=== PATIENT | male | born 1985 | race Two or more races ===

== ENCOUNTER 2025-06-07 03:14 | Inpatient (IN) | payer MEDICAID, SELFPAY ==
[2025-06-07] VITALS (11 sets, daily range): BP systolic 95–125; BP diastolic 64–86; PULSE 65–100; RESP 16–96; TEMP 36.2–36.9; O2SAT 97–99; BMI 23.0; BMI 21.7
--- NOTE | 2025-06-07 03:31 | XR_ITS ---
Examination: CT abdomen and pelvis without contrast. Coronal 3-D reconstructions. Sagittal 2-D reconstructions. Date and time of exam:June 07, 2025, 0401 hours INDICATIONS: Nausea vomiting blood today CTDI: vol (mGy): 10.11 DLP: (mGycm): 586 Technique: Axial images of the abdomen have been obtained, 3 mm slice thickness Intravenous contrast material has not been administered. Low dose protocols were performed. One or more of the following dose reduction techniques were used; automated exposure control, adjustment of the mA and/or KV according to patient size, use of iterative reconstruction technique. Findings: Diffuse fatty infiltration throughout the liver, no liver or splenic lesions No gallstones No pancreatic or adrenal mass No renal or ureteral calculi, no hydronephrosis Aorta normal size Normal appendix No bowel obstruction Contracted urinary bladder with wall thickening at the 5 mm No prostatomegaly Osseous structures are intact IMPRESSION: Diffuse fatty infiltration throughout the liver Normal appendix No bowel obstruction Urinary bladder mild wall thickening, consider cystitis
--- NOTE | 2025-06-07 03:32 | EKG_ITS ---
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
--- NOTE | 2025-06-07 03:32 | PD.EDRME ---
Rapid Medical Screening Exam RME Arrival date/time: 06/07/25 03:14 This is a case of 39-year-old male with no medical history came into the emergency room due to abdominal pain epigastric area with vomiting actively with coffee-ground worsening of the symptoms this patient decided to sought consult here in the emergency room Chief Complaint: GI Bleed Time Seen by Provider: 06/07/25 04:12 Vital signs: Vital Signs Temperature 97.6 F 06/07/25 03:28 Respiratory Rate 17 06/07/25 03:28 Blood Pressure 95/64 06/07/25 03:28 Pulse Oximetry (%) 99 06/07/25 03:28 Oxygen Delivery Method Room Air 06/07/25 03:28
[2025-06-07 03:44] LABS: Basophils # (Auto) 0.1 Thou/mm3 (0.0-0.2); Basophils % (Auto) 1 % (0-2.5); Eosinophils # (Auto) 0.1 Thou/mm3 (0.0-0.5); Eosinophils % (Auto) 1 % (0-10); Hematocrit 42.5 % (41.0-53.0); Hemoglobin 14.7 g/dL (13.5-16.0); Immature Granulocytes Auto 0.03 Thou/mm3 (0.00-0.00); Lymphocytes # (Auto) 1.6 Thou/mm3 (1.0-4.8); Lymphocytes % (Auto) 13 % (10-50); Mean Corpuscular HGB Conc 34.6 g/dl (31.0-37.0); Mean Corpuscular Hemoglobin 32.3 pg (25.0-35.0); Mean Corpuscular Volume 93 fL (80-100); Monocytes # (Auto) 0.9 Thou/mm3 (0.0-0.8); Monocytes % (Auto) 7 % (0-12); Neutrophils # (Auto) 9.4 Thou/mm3 (1.8-7.7); Neutrophils % (Auto) 79 % (37-80); Nucleated Red Blood Cell # 0.00 Thou/mm3 (0.00-0.00); Nucleated Red Blood Cell % 0 /100 WBC (0); Platelet Count 225 Thou/mm3 (140-440); RDW Standard Deviation 40.5 fL (35.1-43.9); Red Blood Count 4.55 Miln/mm3 (4.50-5.90); White Blood Count 12.0 Thou/mm3 (3.8-10.6)
[2025-06-07 04:04] LABS: Alanine Aminotransferase 50 U/L (10-49); Albumin, Serum 4.9 gm/dL (3.5-5.0); Albumin/Globulin Ratio 1.5 (1.2-2.2); Alkaline Phosphatase 64 U/L (46-116); Anion Gap 19 (7-16); Aspartate Amino Transferase 47 U/L (0-34); BUN/Creatinine Ratio 18 Ratio (12-20); Bilirubin,Total 1.4 mg/dL (0.3-1.2); Blood Urea Nitrogen 14 mg/dL (9-23); Calcium 10.2 mg/dL (8.3-10.6); Calcium (Corrected) 10.2 mg/dL (8.5-10.1); Carbon Dioxide 24.2 mMol/L (20.0-31.0); Chloride 93 mMol/L (98-107); Creatinine (Component) 0.8 mg/dL (0.6-1.3); Estimated Creatinine Clearance 135.2 mL/min (>60); Globulin 3.3 gm/dL (2.3-3.5); Glucose 114 mg/dL (74-106); Lipase 26 U/L (12-53); Osmolality,Calculated 273 (275-295); Potassium 3.4 mMol/L (3.4-5.1); Sodium 136 mMol/L (136-145); Total Protein 8.2 gm/dL (5.7-8.2); eGFR > 60 See Note
--- NOTE | 2025-06-07 04:13 | PD.EDGIBLD ---
ED GI Bleed RME/HPI General Chief complaint: GI Bleed Stated complaint: VOMITTING BLOOD Time Seen by Provider: 06/07/25 04:12 Arrival date/time: 06/07/25 03:14 RME / HPI RME / HPI Narrative: 06/07/25 03:14 This is a case of 39-year-old male with no medical history came into the emergency room due to abdominal pain epigastric area with vomiting actively with coffee-ground worsening of the symptoms this patient decided to sought consult here in the emergency room See MDM. Stefano Reyes MD Related Data Home Medications ?Medication ?Instructions ?Recorded ?Confirmed No Known Home Medications 06/07/25 06/07/25 Allergies Allergy/AdvReac Type Severity Reaction Status Date / Time No Known Allergies Allergy Verified 06/07/25 03:19 Review of Systems Review of Systems Systems Reviewed: All systems reviewed, normal except as documented Past Medical History Social History SMOKING STATUS: Current every day smoker ALCOHOL: Current ALCOHOL FREQUENCY: 3 or More Drinks per Day ED Exam Narrative Physical exam: See MDM. Course Quality Measures none Orders Category Date Time Status Admit to Inpatient Status Routine Admission 06/07/25 09:29 Active Patient Condition Routine Admission 06/07/25 09:28 Ordered Activity as Tolerated Routine Care 06/07/25 09:29 Ordered COVID-19 Screening Questionnaire NOW Care 06/07/25 05:40 Completed Decision to Admit X1 Care 06/07/25 05:40 Completed EKG (ED ONLY) *Do not use* NOW Care 06/07/25 03:32 Completed Notify provider NEEDED Care 06/07/25 09:28 Active Obtain weight NOW Care 06/07/25 09:28 Completed Saline [Insert IV] NOW Care 06/07/25 04:14 Active Consult to Gastroenterology Stat Cons 06/07/25 05:[address] abdomen pelvis wo con Stat Exams 06/07/25 03:31 Completed EKG (ED Only) Stat Exams 06/07/25 03:32 Draft US abdomen limited Stat Exams 06/07/25 04:18 Completed Alcohol, Blood Medical Stat Lab 06/07/25 03:37 Completed Amylase Stat Lab 06/07/25 03:37 Completed Bilirubin,Direct Stat Lab 06/07/25 03:37 Completed CBC AM DRAW Lab 06/08/25 05:00 Ordered CBC AM DRAW Lab 06/09/25 05:00 Ordered CBC AM DRAW Lab 06/10/25 05:00 Ordered CBC Stat Lab 06/07/25 03:37 Completed Comprehensive Metabolic Panel AM DRAW Lab 06/08/25 05:00 Ordered Comprehensive Metabolic Panel AM DRAW Lab 06/09/25 05:00 Ordered Comprehensive Metabolic Panel AM DRAW Lab 06/10/25 05:00 Ordered Comprehensive Metabolic Panel Stat Lab 06/07/25 03:37 Completed Drug Screen,Urine Stat Lab 06/07/25 02:51 Completed Lipase Stat Lab 06/07/25 03:37 Completed Lipid Panel AM DRAW Lab 06/08/25 05:00 Ordered Magnesium AM DRAW Lab 06/08/25 05:00 Ordered Magnesium AM DRAW Lab 06/09/25 05:00 Ordered Magnesium AM DRAW Lab 06/10/25 05:00 Ordered Magnesium Stat Lab 06/07/25 03:37 Completed Occult Blood, Gastric (LAB) Stat Lab 06/07/25 05:09 Ordered PT [Prothrombin Time with INR] Stat Lab 06/07/25 04:20 Completed PTT [Partial Thromboplastin Time] Stat Lab 06/07/25 04:20 Completed Phosphorous AM DRAW Lab 06/08/25 05:00 Ordered Thyroid Stimulating Hormone AM DRAW Lab 06/08/25 05:00 Ordered Troponin I Stat Lab 06/07/25 03:37 Completed Type and Screen Stat Lab 06/07/25 03:37 Completed Acetaminophen Tab [Tylenol Tab] Med 06/07/25 09:28 Active 650 mg PO Q6H PRN Famotidine Inj [Pepcid Inj] Med 06/07/25 04:14 Discontinued 20 mg IVP X1 ONE Morphine Inj Med 06/07/25 04:14 Discontinued 2 mg IVP X1 ONE Octreotide Acet Inj [SandoSTATIN Inj] Med 06/07/25 05:32 Discontinued 50 mcg IV X1 ONE Ondansetron Inj [Zofran Inj] Med 06/07/25 09:28 Active 4 mg IVP Q6H PRN Ondansetron Inj [Zofran Inj] Med 06/07/25 04:14 Discontinued 4 mg IVP X1 ONE Ondansetron Inj [Zofran Inj] Med 06/07/25 05:55 Discontinued 8 mg IVP X1 ONE Pantoprazole Inj [Protonix Inj] Med 06/07/25 04:14 Discontinued 80 mg IVP X1 ONE Senna [Senokot] Med 06/07/25 09:28 Active 1 tab PO QDAY PRN Sodium Chloride 0.9% 1000 ml [Ns] 1,000 ml Med 06/07/25 09:30 Active IV 75 mls/hr Sodium Chloride 0.9% 1000 ml [Ns] 1,000 ml Med 06/07/25 04:14 Discontinued IV 999 mls/hr Sodium Chloride 0.9% [Ns] 100 ml Med 06/07/25 05:32 Active Octreotide Acet Inj [SandoSTATIN Inj] 1,000 mcg IV 50 mcg/hr Code Status Routine Oth 06/07/25 09:28 Ordered Oxygen Delivery PRN RT 06/07/25 09:30 Active Vital Signs Vital signs: Vital Signs Temperature 97.6 F 06/07/25 03:28 Respiratory Rate 17 06/07/25 03:28 Blood Pressure 95/64 06/07/25 03:28 Pulse Oximetry (%) 99 06/07/25 03:28 Oxygen Delivery Method Room Air 06/07/25 03:28 GI Bleed MDM Narrative MDM Narrative:: Scribe Attestation: I, Alayna Cervantes, am scribing for and in the presence of Dr. Reyes. Provider Notation: Although this document has been carefully reviewed, there may still be some phonetic and other typographical errors.? These errors are purely grammatical due to imperfections in the software program and should not be construed in any way to? compromise the substance of the patient's medical care during this visi This section includes all my notes and documentations, including HPI, PE, and ED course. Stefano Reyes MD HPI: 39 y/o male here with possible hematemesis for 12 to 24 hours. No bright red blood in emesis. Reports coffee ground emesis. No severe abdominal pain. No rectal bleeding or tarry stools. No history of similar episodes. Reports regular alcohol use. No other complaints. ROS: All negative except as documented in HPI. Physical Exam: General: Alert and oriented. Violently throwing up coffee ground emesis. Eyes: Conjunctivae and lids clear. ENT: No nasal congestion. Neck: Supple. Heart: RRR. Lungs: No respiratory distress. Good air movement. No rhonchi, wheezing, rales. Abdomen: Soft with equivocal tenderness, to point to localize. Normal bowel sounds. No distension. No rebound or guarding. Back: No CVA tenderness. Skin: Warm and dry. Neuro: Alert and oriented X 3. I reviewed all diagnostic test results: My interpretation of the EKG is: Sinus rhythm (94 bpm) with nonspecific ST-T changes. My review of the Abdominal US report is: NAD. My review of the Abdomen/Pelvis CT report is: NAD. Blood tests unremarkable. Urine specimen pending. At this point, diagnoses include: Upper GI bleed. Treatment here included: IV fluid, Zofran, Famotidine, Protonix, and Octreotide. Patient felt much better. 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 About the presentation and exam and diagnostics and treatments here.? And need of further care in the hospital.? Will accept the patient. Stefano Reyes MD Patient data External records reviewed:: [facility] previous records (Reviewed prior ED records from 03/30/22. Patient was seen for Laceration.) Clinical information provided by:: patient Social determinants that could affect healthcare access:: alcohol use Patient has the following chronic illnesses:: Alcoholism How is presenting disease/condition affected by chronic disease/condition?: exacerbated by Evaluation data The following diagnostics were reviewed and interpreted by me:: EKG tracing(s) (My interpretation of the EKG is: Sinus rhythm (94 bpm) with nonspecific ST-T changes. Stefano Reyes MD) Lab and/or radiology exams considered but not ordered:: None Interpretation Summary: I reviewed all diagnostic test results: My interpretation of the EKG is: Sinus rhythm (94 bpm) with nonspecific ST-T changes. My review of the Abdominal US report is: NAD. My review of the Abdomen/Pelvis CT report is: NAD. Blood tests unremarkable. Urine specimen pending. Medications / Prescriptions Medications or Prescriptions considered but not ordered:: None Medication administrations:: Medication Administration History Acetaminophen (Acetaminophen 325 Mg Tablet) 650 mg PO Q6H PRN PRN Reason: Fever >101.5 &/or pain Stop: 07/07/25 09:27 Octreotide Acetate 1,000 mcg/ (Sodium Chloride) 102 mls @ 5.1 mls/hr IV .Q20H ONE; Protocol Stop: 06/08/25 01:31 Last Admin: 06/07/25 05:42 Dose: 50 mcg/hr, 5.1 mls/hr Documented By: DIANNE Sodium Chloride (Ns) 1,000 mls @ 75 mls/hr IV .[id number] [facility] Stop: 07/07/25 09:29 Last Admin: 06/07/25 09:52 Dose: 75 mls/hr Documented By: Magnesium Sulfate (Magnesium Sulfate Ivpb) 4 gm in 50 mls @ 12.5 mls/hr IV X1 ONE Stop: 06/07/25 21:49 Last Admin: 06/07/25 18:22 Dose: 12.5 mls/hr Documented By: YESI Ondansetron HCl (Ondansetron Inj 2 Mg/Ml Inj 2 Ml) 4 mg IVP Q6H PRN; Protocol PRN Reason: NAUSEA OR VOMITING Stop: 07/07/25 09:27 Pantoprazole Sodium (Pantoprazole Inj 40 Mg Vial) 40 mg IVP BID [facility] Stop: 07/09/25 08:59 Sennosides (Senna Tablet) 1 tab PO QDAY PRN; Protocol PRN Reason: constipation Stop: 07/07/25 09:27 Discontinued Medications Famotidine (Famotidine Inj 10 Mg/Ml Vial 2 Ml) 20 mg IVP X1 ONE Stop: 06/07/25 04:15 Last Admin: 06/07/25 04:44 Dose: 20 mg Documented By: DIANNE Sodium Chloride (Ns) 1,000 mls @ 999 mls/hr IV .Q1H1M ONE Stop: 06/07/25 05:14 Last Infusion: 06/07/25 06:28 Dose: Infused Documented By: Admin: 06/07/25 04:44 Dose: 999 mls/hr Documented By: DIANNE Morphine Sulfate (Morphine Sulf Inj 10 Mg/Ml Vial) 2 mg IVP X1 ONE Stop: 06/07/25 04:15 Last Admin: 06/07/25 04:45 Dose: Not Given Documented By: DIANNE Non-Admin Reason: Patient Refused Octreotide Acetate (Octreotide Acet Inj 50 Mcg/Ml Vial) 50 mcg IV X1 ONE Stop: 06/07/25 05:33 Last Admin: 06/07/25 05:42 Dose: 50 mcg Documented By: DIANNE Ondansetron HCl (Ondansetron Inj 2 Mg/Ml Inj 2 Ml) 4 mg IVP X1 ONE; Protocol Stop: 06/07/25 04:15 Last Admin: 06/07/25 04:44 Dose: 4 mg Documented By: DIANNE Ondansetron HCl (Ondansetron Inj 2 Mg/Ml Inj 2 Ml) 8 mg IVP X1 ONE; Protocol Stop: 06/07/25 05:56 Last Admin: 06/07/25 06:01 Dose: 8 mg Documented By: DIANNE Pantoprazole Sodium (Pantoprazole Inj 40 Mg Vial) 80 mg IVP X1 ONE Stop: 06/07/25 04:15 Last Admin: 06/07/25 04:43 Dose: 80 mg Documented By: DIANNE IVF, Pepcid 20 mg, Morphine 2 mg, Zofran 4 mg, Protonix 80 mg, and Octreotide. Consultations Consultation(s) initiated? (list below): Yes Consultation #1 (Physician, Specialty, Details): I discussed the case with our tape sewing machine operator and our hospitalist.? About the presentation and exam and diagnostics and treatments here.? And need of further care in the hospital.? Will accept the patient. Diagnosis GI bleed differential diagnosis: esophageal varices, gastritis, Upper gastrointestinal hemorrhage and other (Peptic Ulcer) Most likely diagnosis given after review of the tests above:: Upper GI bleed Admission Indicated Admission indicated?: indicated Explain why admission is indicated or not indicated:: Upper GI bleed Admission Request Was there a request for admission?: Yes Admission Attestation Admission request attestation: Discussed case with [] from Hospitalist service regarding admission. Discussed patients ED course, exam findings, labs, and radiology results. The Hospitalist [agrees,declines] to accept the patient for admission. Disposition Plan Disposition Plan: Admit Discharge Plan Plan Patient Disposition: Admit Acute Care w/in Hospital Problem List Clinical Impression: Upper GI bleed
--- NOTE | 2025-06-07 04:18 | XR_ITS ---
Examination: Abdomen sonogram, Limited Date and time of exam: June 07, 2025 0522 hours INDICATIONS: Nausea vomiting right upper abdominal pain beginning today. Technique: Real-time bolton scale transabdominal sonographic images of the upper abdomen obtained. Findings: Normal gallbladder. Normal common bile duct 0.35 cm. Pancreas obscured by bowel gas. Liver 16.35 cm no liver lesions. Normal hepatopedal portal venous flow. Patent IVC. IMPRESSION: Normal gallbladder.
[2025-06-07] MEDS: FAMOTIDINE INJ 10 MG/ML VIAL 2 ML 20 MG IVP (04:44)
[2025-06-07] MEDS: SODIUM CHLORIDE 0.9% 1000 ML 1,000 ML 999 ML IV (04:44)
[2025-06-07] MEDS: ONDANSETRON INJ 2 MG/ML INJ 2 ML 4 MG IVP (04:44)
--- NOTE | 2025-06-07 05:02 | PRELIM_ITS ---
CT scan of the abdomen and pelvis without intravenous contrast (axial sections with sagittal and coronal reformats) June 07, 2025 0401 hours Clinical History: Abd pain. Comparison: No prior study is available for comparison. Findings: The lung bases are clear. The liver, gallbladder, pancreas, spleen, kidneys and adrenals are unremarkable on this noncontrast study. No evidence of bowel obstruction. A moderate amount of fecal material is present in the colon. The appendix is within normal limits (coronal images 72-77/139). There is no mesenteric or retroperitoneal adenopathy. The urinary bladder is incompletely distended at the time of the examination and appears mildly thick walled. . There is no free fluid or free air. Degenerative changes are identified in the spine. Impression: No evidence of bowel obstruction, free air or abscess. Report Electronically Signed By: Salazar Mccormick 06/07/2025 5:01:34 AM [EST]
[2025-06-07] MEDS: OCTREOTIDE ACET INJ 50 mCg/ML VIAL IV (05:42)
[2025-06-07] MEDS: OCTREOTIDE ACET INJ 1,000 MCG in SODIUM CHLORIDE 0.9% 100 ML 5.1 MCG IV ×2 (05:42→22:16)
[2025-06-07 05:52] LABS: INR 1.0 (0.9-1.3); Partial Thromboplastin Time 25.9 Seconds (22.0-36.0); Prothrombin Time 11.2 Seconds (9.0-12.2)
[2025-06-07 05:52] LABS: Alcohol, Blood Medical 79.6 mg/dL (0-10.0); Amylase 30 U/L (30-118); Bilirubin,Direct 0.5 mg/dL (0.0-0.3); Magnesium 1.5 mg/dL (1.6-2.6); Troponin I < 0.002 ng/mL (0.0-0.045)
--- NOTE | 2025-06-07 05:55 | PC.NURSE ---
Pt vomiting, notified provider, new order to give 8mg of zofran IVP once-see mar
[2025-06-07] MEDS: ONDANSETRON INJ 2 MG/ML INJ 2 ML 8 MG IVP (06:01)
--- NOTE | 2025-06-07 06:24 | PRELIM_ITS ---
Right upper quadrant abdominal ultrasound. June 07, 2025 at 0522 hours Clinical history: Vomiting LFT elevation. Technique: Grayscale and color flow images of the right upper quadrant are provided. Hepatic and portal veins were also imaged with color flow images. Correlation: Correlated with the prior CT study perfomed earlier today. Findings: The liver is normal in echogenicity. No intrahepatic biliary ductal dilatation. No gallbladder calculus, wall thickening or pericholecystic fluid is demonstrated. The common bile duct is normal in caliber at 3.5 mm. The pancreas is limited for evaluation due to bowel gas Impression: No sonographic features of acute cholecystitis. Other findings as described above. Report Electronically Signed By: Devora Lugo 06/07/2025 6:23:10 AM [EST]
--- NOTE | 2025-06-07 08:22 | PC.NURSE ---
RESIDENT AT BEDSIDE TO SEE PT
[2025-06-07] MEDS: SODIUM CHLORIDE 0.9% 1000 ML 1,000 ML 75 ML IV ×2 (09:52→21:59)
--- NOTE | 2025-06-07 13:52 | PC.NURSE ---
REPORT CALLED TO NIRALI ON TELE FLOOR. PT TO GO TO ROOM 380
--- NOTE | 2025-06-07 14:22 | PD.ADDPROG ---
Addendum Progress Note Addendum Date of report being addended: 06/07/25 Narrative: I Kg Vasquez MD reviewed the note and agree with the resident's assessment & plan with modifications/additions/exceptions as below. I have personally reviewed labs, imaging, home meds/prior records, examined the patient, formulated and discussed management plan with the IM team. A 39-year-old male with heavy EtOH and polysubstance use presented to ED following an episode of hematemesis. Patient is hemodynamically stable with hemoglobin within normal limits, LFTs mildly elevated and labs significant for dehydration. Lipase, troponin within normal limits. CT scan did show fatty liver. Continue trending CBC every 12 hours, will administer IV fluids to keep hydrated, keep n.p.o., start Protonix 40 mg IV twice daily following Protonix loading and continue octreotide infusion. Consult GI for endoscopic evaluation and management.
--- NOTE | 2025-06-07 14:41 | PC.NURSE ---
Pt to room via gurney. Comfortable at this time. Denies N/V or pain. Girlfriend at bedside.
--- NOTE | 2025-06-07 15:11 | PC.NURSE ---
[facility] [place] Martha Grier is at bedside and can be reached at [phone]
[2025-06-07 15:28] LABS: Amphetamine/Methamp Scrn,U Negative (Negative); Barbiturate Screen,Urine Negative (Negative); Benzodiazepines Screen,Urine Negative (Negative); Benzoylecgonine Screen, Ur Positive (Negative); Fentanyl Screen,Urine Negative (Negative); Opiate Screen,Urine Negative (Negative); THC Screen,Urine Negative (Negative)
--- NOTE | 2025-06-07 16:17 | ESHP_ITS ---
<Statement entered by Kg Vasquez MD - 06/08/25 12:44> I Kg Vasquez MD reviewed the note and agree with the resident's assessment & plan with modifications/additions/exceptions as below. I have personally reviewed labs, imaging, home meds/prior records, examined the patient, formulated and discussed management plan with the IM team. A 39-year-old male with heavy EtOH and polysubstance use presented to ED following an episode of hematemesis. Patient is hemodynamically stable with hemoglobin within normal limits, LFTs mildly elevated and labs significant for dehydration. Lipase, troponin within normal limits. CT scan did show fatty liver. Continue trending CBC every 12 hours, will administer IV fluids to keep hydrated, keep n.p.o., start Protonix 40 mg IV twice daily following Protonix loading and continue octreotide infusion. Consult GI for endoscopic evaluation and management. <Statement entered by Prisca Vasquez MD - 06/07/25 19:39> Patient is seen at bedside. Patient endorses to drinking 4 to 5 tall cans of beer daily and uses cocaine occasionally. Patient states last night he drank couple beers and started not feeling very well and was nauseous and had 1 episodes of coffee ground emesis. Patient denies any previous history of similar episodes and has never been told anything related to his liver disease. GI is on board patient will continue octreotide drip and Protonix twice daily and will undergo EGD tomorrow. Will continue IV fluids for now. Patient was seen and examined by me personally. I have directly supervised and reviewed documentation by the team resident and agree with its findings. ------- Plan of care was discussed with the attending, Dr. Pedro Vasquez, PGY-2 Documentation for date of: 06/07/25 HPI History of Present Illness Chief complaint: Hematemasis History of present illness: Gadiel Polanco is a 39M pmhx significant for polysubstance use including alcohol and cocain who presents to [facility] on 06/07 with coffee-ground emesis starting yesterday afternoon. Patient states that he had a couple of beers before and that around 5 PM he started vomiting brown gritty vomit about 1-2 cups every other hour, with associated nausea, subjective fevers and sweating. He has never vomited like this before. This morning patient continued to feel nauseous and vomiting prompting current ED visit. Patient reports that he drinks about 4-5 tall cans of beer a day for the last few years. Endorses some epigastric pain, nausea and vomiting. Patient currently denies any chest pain, lower abdominal pain, shortness of breath, urinary symptoms or fever/chills. States that he infrequently sees a PCP and has never been diagnosed with any liver disease. PMHx: alcohol use Surgical Hx: remote R hand surgery FHx: Noncontributory Social Hx: Smokes 1 to 2 cigarettes every other day. Endorses snorting cocaine about once a month. Admits to drinking 4-5 tall beer cans a day. Allergies: NKDA, NKA Medications: none In ED, BP 95/64, HR 100, RR 17, afebrile, satting 99% RA. Significant labs: WBC 12, anion gap 19, Mg 1.5, Tbili 1.4, AST/ALT 47/50, trops neg. UDS positive for cocaine and urine alcohol 79.6. In ED, given IV pantoprazole 80 mg x1, 1L NS, zofran and famotidine, octreotide 50 mcg x1, octreotide drip. CTAP showed diffuse fatty infiltration throughout the liver, normal appendix, urinary bladder mild wall thickening. EKG showed sinus tachycardia rate of 94. Abdominal ultrasound shows normal gallbladder. Patient was admitted for further workup and management of GIB. Review of Systems Review of Systems Systems Reviewed: All systems reviewed, normal except as documented Exam Vital Signs Temp Pulse Resp BP Pulse Ox O2 Del Method 98.0 F 96 18 111/67 97 Room Air 06/07/25 12:28 06/07/25 12:06/07/25 12:06/07/25 12:06/07/25 12:06/07/25 12: Narrative Exam GENERAL: AOx3, no acute distress, lying comfortably in bed, well developed and nurished HEENT: NC/AT, mucous membranes dry, bilateral sclera anicteric CARDIOVASCULAR: regular rate and rhythm, S1/S2 present, no murmurs appreciated PULMONARY: clear to auscultation bilaterally, no rales/rhonchi/wheezes ABDOMINAL: soft, non-distended, no rebound/guarding, bowel sounds present, +mild epigastric tenderness EXTREMITIES: no peripheral edema SKIN: warm and dry, intact, no rashes NEURO: CN II-XII grossly intact, no focal deficits, alert, following commands Results: Labs 06/07/25 03:37 06/07/25 03:37 Labs: Short CBC 06/07/25 Range/Units 03:37 WBC 12.0 H (3.8-10.6) Thou/mm3 Hgb 14.7 (13.5-16.0) g/dL Hct 42.5 (41.0-53.0) % Plt Count 225 (140-440) Thou/mm3 BMP 06/07/25 03:37 Sodium 136 Potassium 3.4 Chloride 93 L Carbon Dioxide 24.2 BUN 14 Creatinine 0.8 Glucose 114 H Calcium 10.2 Cardiac Enzymes 06/07/25 Range/Units 03:37 Troponin I < 0.002 (0.0-0.045) ng/mL Liver Function 06/07/25 Range/Units 03:37 Total Bilirubin 1.4 H (0.3-1.2) mg/dL Direct Bilirubin 0.5 H (0.0-0.3) mg/dL AST 47 H (0-34) U/L ALT 50 H (10-49) U/L Alkaline Phosphatase 64 (46-116) U/L Albumin 4.9 (3.5-5.0) gm/dL Quality Measures Quality Measures VTE prophylaxis Medications Home Medications and Allergies Home Medications ?Medication ?Instructions ?Recorded ?Confirmed ?Type No Known Home Medications 06/07/2505/22 History Allergies Allergy/AdvReac Type Severity Reaction Status Date / Time No Known Allergies Allergy Verified 06/07/25 03:19 Visit Medications Acetaminophen (Acetaminophen 325 Mg Tablet) 650 mg PO Q6H PRN PRN Reason: Fever >101.5 &/or pain Stop: 07/07/25 09:27 Octreotide Acetate 1,000 mcg/ (Sodium Chloride) 102 mls @ 5.1 mls/hr IV .Q20H ONE; Protocol Stop: 06/08/25 01:31 Last Admin: 06/07/25 05:42 Dose: 50 mcg/hr, 5.1 mls/hr Sodium Chloride (Ns) 1,000 mls @ 75 mls/hr IV .[id number] VANESSA Stop: 07/07/25 09:29 Last Admin: 06/07/25 09:52 Dose: 75 mls/hr Ondansetron HCl (Ondansetron Inj 2 Mg/Ml Inj 2 Ml) 4 mg IVP Q6H PRN; Protocol PRN Reason: NAUSEA OR VOMITING Stop: 07/07/25 09:27 Pantoprazole Sodium (Pantoprazole Inj 40 Mg Vial) 40 mg IVP BID VANESSA Stop: 07/09/25 08:59 Sennosides (Senna Tablet) 1 tab PO QDAY PRN; Protocol PRN Reason: constipation Stop: 07/07/25 09:27 Discontinued Medications Famotidine (Famotidine Inj 10 Mg/Ml Vial 2 Ml) 20 mg IVP X1 ONE Stop: 06/07/25 04:15 Last Admin: 06/07/25 04:44 Dose: 20 mg Sodium Chloride (Ns) 1,000 mls @ 999 mls/hr IV .Q1H1M ONE Stop: 06/07/25 05:14 Last Infusion: 06/07/25 06:28 Dose: Infused Morphine Sulfate (Morphine Sulf Inj 10 Mg/Ml Vial) 2 mg IVP X1 ONE Stop: 06/07/25 04:15 Last Admin: 06/07/25 04:45 Dose: Not Given Octreotide Acetate (Octreotide Acet Inj 50 Mcg/Ml Vial) 50 mcg IV X1 ONE Stop: 06/07/25 05:33 Last Admin: 06/07/25 05:42 Dose: 50 mcg Ondansetron HCl (Ondansetron Inj 2 Mg/Ml Inj 2 Ml) 4 mg IVP X1 ONE; Protocol Stop: 06/07/25 04:15 Last Admin: 06/07/25 04:44 Dose: 4 mg Ondansetron HCl (Ondansetron Inj 2 Mg/Ml Inj 2 Ml) 8 mg IVP X1 ONE; Protocol Stop: 06/07/25 05:56 Last Admin: 06/07/25 06:01 Dose: 8 mg Pantoprazole Sodium (Pantoprazole Inj 40 Mg Vial) 80 mg IVP X1 ONE Stop: 06/07/25 04:15 Last Admin: 06/07/25 04:43 Dose: 80 mg Assessment & Plan Plan Gadiel Polanco is a 39M pmhx significant for alcohol dependence who presents to [facility] on 06/07 with acute hematemesis admitted for management of GIB, likely upper. #GIB, likely upper #Hematemasis Endorses frequent episodes of hematemesis starting day prior to admission and in moderate amounts. On admission still vomiting, however, much less and light brown colored. Likely upper GI bleed 2/2 chronic alcohol use and cocaine use. Concern for esophageal varices given chronic alcohol use. Hgb stable at 14.7. 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 Reports no history of liver disease and rarely sees a PCP. CTAP showed diffuse fatty infiltration throughout the liver, normal appendix, urinary bladder mild wall thickening. AST/ALT mildly elevated at 47/50, baseline unknown. TBili elevated at 1.4 however abdominal US neg for gallbladder disease. Plan: - CTM LFTs and Tbili - Recommend outpatient workup for further management #Hypomagnesemia Admission Mg 1.5, repleted Mg 4g IV Plan: - Recheck and replete as necessary Hospital management: Lines: peripheral IV Diet: NPO Bowel: Senna/docusate GI prophylaxis: IV pantoprazole 40 mg BID DVT prophylaxis: SCDs, heparin held iso GIB Disposition: med [facility] for management of GIB CODE STATUS: Full code Plan of care discussed with attending Dr. Vasquez, and PGY-2 Dr. Vasquez. Trudi Rojas, DO PGY-1 Internal Medicine
[2025-06-07] MEDS: Magnesium Sulfate 4 GM Ivpb 4 GM/50 ML BAG IV (18:22)
[2025-06-07 18:55] LABS: Basophils # (Auto) 0.0 Thou/mm3 (0.0-0.2); Basophils % (Auto) 1 % (0-2.5); Eosinophils # (Auto) 0.1 Thou/mm3 (0.0-0.5); Eosinophils % (Auto) 1 % (0-10); Hematocrit 32.4 % (41.0-53.0); Hemoglobin 10.9 g/dL (13.5-16.0); Immature Granulocytes Auto 0.01 Thou/mm3 (0.00-0.00); Lymphocytes # (Auto) 1.5 Thou/mm3 (1.0-4.8); Lymphocytes % (Auto) 25 % (10-50); Mean Corpuscular HGB Conc 33.6 g/dl (31.0-37.0); Mean Corpuscular Hemoglobin 32.2 pg (25.0-35.0); Mean Corpuscular Volume 96 fL (80-100); Monocytes # (Auto) 0.9 Thou/mm3 (0.0-0.8); Monocytes % (Auto) 14 % (0-12); Neutrophils # (Auto) 3.6 Thou/mm3 (1.8-7.7); Neutrophils % (Auto) 59 % (37-80); Nucleated Red Blood Cell # 0.00 Thou/mm3 (0.00-0.00); Nucleated Red Blood Cell % 0 /100 WBC (0); Platelet Count 164 Thou/mm3 (140-440); RDW Standard Deviation 41.5 fL (35.1-43.9); Red Blood Count 3.39 Miln/mm3 (4.50-5.90); White Blood Count 6.1 Thou/mm3 (3.8-10.6)
--- NOTE | 2025-06-07 20:53 | PD.IMCONS ---
HPI Data of Consult Requesting Physician: Trudi Rojas, RESIDENT Primary Care Provider: Physician No Primary/Family Consult Narrative Reason for consult: Nausea vomiting coffee-ground emesis History of present illness: 39 years old male came into the emergency room with severe abdominal pain midepigastric right upper quadrant going to the back as well as nausea vomiting with coffee-ground emesis he was subsequently readmitted He has a significant drop in hemoglobin hematocrit Presenting hemoglobin hematocrit 14.7 and 42.5 which went down to 10.9 and 32.4 with a platelet count of 164,000 Pro time INR was 1.0 Total bilirubin 0.5 slightly elevated AST ALT at 47 and 50 and alk phos normal at 64 Gallbladder ultrasound shows no stones in the gallbladder enlarged liver at 16.5 cm with hepatomegaly which is confirmed with fatty infiltration on CT scan imaging of the abdomen without contrast there were no other abnormalities Patient was subsequently admitted cc:: cc: RESIDENT Boyd Review of Systems Review of Systems Systems Reviewed: All systems reviewed, normal except as documented Past Medical History Surgical History OTHER SURGICAL HX: As in the history of present illness Meds Home Medications and Allergies Home Medications ?Medication ?Instructions ?Recorded ?Confirmed ?Type No Known Home Medications 06/07/25 06/07/25 History Allergies Allergy/AdvReac Type Severity Reaction Status Date / Time No Known Allergies Allergy Verified 06/07/25 03:19 Exam Vital Signs Temp Pulse Resp BP Pulse Ox O2 Del Method 97.2 F 93 16 123/81 98 Room Air 06/07/25 16:00 06/07/25 20:50 06/07/25 16:00 06/07/25 16:00 06/07/25 16:00 06/07/25 16:00 Constitutional Comments: Alert oriented Routine Respiratory Exam Comments: Normal to auscultation Routine Abdominal Exam Comments: Soft positive bowel sound midepigastric tenderness Results Labs 06/09/25 04:37 06/09/25 04:37 Labs: Short CBC 06/07/25 06/07/25 Range/Units 03:37 18:30 WBC 12.0 H 6.1 D (3.8-10.6) Thou/mm3 Hgb 14.7 10.9 L D (13.5-16.0) g/dL Hct 42.5 32.4 L D (41.0-53.0) % Plt Count 225 164 D (140-440) Thou/mm3 BMP 06/07/25 03:37 Sodium 136 Potassium 3.4 Chloride 93 L Carbon Dioxide 24.2 BUN 14 Creatinine 0.8 Glucose 114 H Calcium 10.2 Cardiac Enzymes 06/07/25 Range/Units 03:37 Troponin I < 0.002 (0.0-0.045) ng/mL Liver Function 06/07/25 Range/Units 03:37 Total Bilirubin 1.4 H (0.3-1.2) mg/dL Direct Bilirubin 0.5 H (0.0-0.3) mg/dL AST 47 H (0-34) U/L ALT 50 H (10-49) U/L Alkaline Phosphatase 64 (46-116) U/L Albumin 4.9 (3.5-5.0) gm/dL Assessment and Plan Additional Assessment & Plan Additional Plan: # Coffee-ground emesis # Posthemorrhagic anemia Plan I agree with the current management Consent obtained for fiberoptic esophagogastroduodenoscopy with possible biopsy possible therapeutic intervention under intravenous moderate sedation schedule for a.m. N.p.o. midnight tonight except p.o. meds # fatty liver with hepatomegaly discussed CHAPIN cirrhosis Thank you very much for the opportunity to participate in the care of this patient
[2025-06-07 21:24] LABS: Hepatitis A Antibody IgM Non Reactive (Non React); Hepatitis B Core Antibody IgM Non Reactive (Non React); Hepatitis B Surface Antigen Non Reactive (Non React); Hepatitis C Antibody Non Reactive (Non React)
[2025-06-08] VITALS (21 sets, daily range): BP systolic 105–149; BP diastolic 66–95; PULSE 49–86; RESP 12–95; TEMP 36.1–36.4; O2SAT 94–99
[2025-06-08] MEDS: cefTRIAXone/D5w 1gm IV premix 1 GM/50 ML BAG IV (05:37)
[2025-06-08 06:14] LABS: Basophils # (Auto) 0.0 Thou/mm3 (0.0-0.2); Basophils % (Auto) 1 % (0-2.5); Eosinophils # (Auto) 0.1 Thou/mm3 (0.0-0.5); Eosinophils % (Auto) 3 % (0-10); Hematocrit 33.1 % (41.0-53.0); Hemoglobin 11.0 g/dL (13.5-16.0); Immature Granulocytes Auto 0.01 Thou/mm3 (0.00-0.00); Lymphocytes # (Auto) 1.1 Thou/mm3 (1.0-4.8); Lymphocytes % (Auto) 21 % (10-50); Mean Corpuscular HGB Conc 33.2 g/dl (31.0-37.0); Mean Corpuscular Hemoglobin 32.7 pg (25.0-35.0); Mean Corpuscular Volume 99 fL (80-100); Monocytes # (Auto) 0.7 Thou/mm3 (0.0-0.8); Monocytes % (Auto) 13 % (0-12); Neutrophils # (Auto) 3.3 Thou/mm3 (1.8-7.7); Neutrophils % (Auto) 63 % (37-80); Nucleated Red Blood Cell # 0.00 Thou/mm3 (0.00-0.00); Nucleated Red Blood Cell % 0 /100 WBC (0); Platelet Count 149 Thou/mm3 (140-440); RDW Standard Deviation 43.2 fL (35.1-43.9); Red Blood Count 3.36 Miln/mm3 (4.50-5.90); White Blood Count 5.2 Thou/mm3 (3.8-10.6)
[2025-06-08 07:11] LABS: Alanine Aminotransferase 53 U/L (10-49); Albumin, Serum 3.7 gm/dL (3.5-5.0); Albumin/Globulin Ratio 1.5 (1.2-2.2); Alkaline Phosphatase 46 U/L (46-116); Anion Gap 9 (7-16); Aspartate Amino Transferase 74 U/L (0-34); BUN/Creatinine Ratio 14 Ratio (12-20); Bilirubin,Total 1.5 mg/dL (0.3-1.2); Blood Urea Nitrogen 11 mg/dL (9-23); Calcium 8.9 mg/dL (8.3-10.6); Calcium (Corrected) 9.1 mg/dL (8.5-10.1); Carbon Dioxide 29.7 mMol/L (20.0-31.0); Cardiac Risk Estimate 2.0 RATIO (4.0-6.7); Chloride 102 mMol/L (98-107); Cholesterol 126 mg/dL (132-200); Creatinine (Component) 0.8 mg/dL (0.6-1.3); Estimated Creatinine Clearance 127.6 mL/min (>60); Globulin 2.4 gm/dL (2.3-3.5); Glucose 99 mg/dL (74-106); HDL Cholesterol 62 mg/dL (40-60); LDL Cholesterol,Calculated 49 mg/dL (0-130); Magnesium 1.9 mg/dL (1.6-2.6); Osmolality,Calculated 280 (275-295); Phosphorous 2.8 mg/dL (2.4-5.1); Potassium 4.0 mMol/L (3.4-5.1); Sodium 141 mMol/L (136-145); Thyroid Stimulating Hormone 0.30 uIU/mL (0.55-4.78); Total Protein 6.1 gm/dL (5.7-8.2); Triglycerides 75 mg/dL (30-150); eGFR > 60 See Note
[2025-06-08 07:21] LABS: Glucose Estimated Average 94 mg/dL (80-131); Hemoglobin A1C 4.9 % Hgb (4.8-6.0)
--- NOTE | 2025-06-08 09:11 | PC.SS ---
Follow up note: EGD today.
--- NOTE | 2025-06-08 09:12 | ESPR_ITS ---
<Statement entered by Rio Crockett MD - 06/09/25 10:22> Patient was seen and examined at bedside. I agree on the assessment and plan on this note as documented by Trudi Rojas DO resident PGY1. 39-year-old male with past medical history of alcohol use admitted to [facility] for GI bleed workup, suspecting upper GI bleed due to hematemesis, will continue Protonix 40 twice daily, octreotide drip and ceftriaxone for SBP prophylaxis. Patient scheduled for EGD today. 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 Will continue current management, pending EGD. Case discussed with attending Dr. Pedro Crockett MD PGY-2 Documentation for date of: 06/08/25 Subjective Subjective Interval history: No acute overnight events. Patient seen and examined at bedside. Patient denies any further episodes of brown-colored vomit,current nausea or any abdominal pain. Last bowel movement prior to admission. Denies shortness of breath, dizziness or fatigue. EGD scheduled for today. Patient has been n.p.o. since midnight. On ceftriaxone for SBP prophylaxis, octreotide drip, IV pantoprazole 40 mg twice daily. Vitals stable. Hemoglobin dropped from 14.7 on admission to 11, likely dehydration as white count also sharply decreased from 12-6.1. TSH low at 0.3 follow T4. LFTs slightly uptrending at AST/AST from 47/50-74/53. T. bili still elevated at 1.5. Exam Vital Signs Temp Pulse Resp BP Pulse Ox O2 Del Method 97.5 F 86 20 110/76 99 Room Air 06/08/25 04:00 06/08/25 06:55 06/08/25 06:55 06/08/25 04:00 06/08/25 04:00 06/08/25 04:00 Narrative Exam GENERAL: AOx3, no acute distress, lying comfortably in bed, well developed and nourished HEENT: NC/AT, mucous membranes dry, bilateral sclera anicteric CARDIOVASCULAR: regular rate and rhythm, S1/S2 present, no murmurs appreciated PULMONARY: clear to auscultation bilaterally, no rales/rhonchi/wheezes ABDOMINAL: soft, non-distended, no rebound/guarding, bowel sounds present, no epigastric tenderness EXTREMITIES: no peripheral edema SKIN: warm and dry, intact, no rashes NEURO: CN II-XII grossly intact, no focal deficits, alert, following commands Objective Labs 06/08/25 05:35 06/08/25 05:35 Labs: Laboratory Results - last 24 hr 06/07/25 06/07/25 06/07/25 02:51 03:37 18:30 WBC 6.1 D RBC 3.39 L Hgb 10.9 L D Hct 32.4 L D MCV 96 MCH 32.2 MCHC 33.6 RDW Std Deviation 41.5 Plt Count 164 D Neut % (Auto) 59 Lymph % (Auto) 25 [place] % (Auto) 14 H Eos % (Auto) 1 Baso % (Auto) 1 Neut # (Auto) 3.6 Lymph # (Auto) 1.5 [place] # (Auto) 0.9 H Eos # (Auto) 0.1 Baso # (Auto) 0.0 Immature Gran # (Auto) 0.01 H Absolute Nucleated RBC 0.00 Immature Gran % 0 Nucleated RBC % 0 Sodium Potassium Chloride Carbon Dioxide Anion Gap BUN Creatinine Estim Creat Clear Calc eGFR BUN/Creatinine Ratio Glucose Estimated Ave Glu mg/dL Hemoglobin A1c Calculated Osmolality Calcium Corrected Calcium Phosphorus Magnesium Total Bilirubin AST ALT Alkaline Phosphatase Total Protein Albumin Globulin Albumin/Globulin Ratio Triglycerides Cholesterol LDL Cholesterol, Calc HDL Cholesterol Cholesterol/HDL Ratio TSH Urine Opiates Screen Negative Urine Fentanyl Screen Negative Ur Barbiturates Screen Negative U Amphetamin/Meth Scrn Negative U Benzodiazepines Scrn Negative U Cocaine Metab Screen Positive A U Marijuana (THC) Screen Negative Hepatitis A IgM Ab Non Reactive Hep Bs Antigen Non Reactive Hep B Core IgM Ab Non Reactive Hepatitis C Antibody Non Reactive 06/08/25 05:35 WBC 5.2 RBC 3.36 L Hgb 11.0 L Hct 33.1 L MCV 99 MCH 32.7 MCHC 33.2 RDW Std Deviation 43.2 Plt Count 149 Neut % (Auto) 63 Lymph % (Auto) 21 [place] % (Auto) 13 H Eos % (Auto) 3 Baso % (Auto) 1 Neut # (Auto) 3.3 Lymph # (Auto) 1.1 [place] # (Auto) 0.7 Eos # (Auto) 0.1 Baso # (Auto) 0.0 Immature Gran # (Auto) 0.01 H Absolute Nucleated RBC 0.00 Immature Gran % 0 Nucleated RBC % 0 Sodium 141 Potassium 4.0 D Chloride 102 Carbon Dioxide 29.7 Anion Gap 9 BUN 11 Creatinine 0.8 Estim Creat Clear Calc 127.6 eGFR > 60 BUN/Creatinine Ratio [address] Glu mg/dL 94 Hemoglobin A1c 4.9 Calculated Osmolality 280 Calcium 8.9 Corrected Calcium 9.1 Phosphorus 2.8 Magnesium 1.9 Total Bilirubin 1.5 H AST 74 H ALT 53 H Alkaline Phosphatase 46 D Total Protein 6.1 Albumin 3.7 D Globulin 2.4 Albumin/Globulin Ratio 1.5 Triglycerides 75 Cholesterol 126 L LDL Cholesterol, Calc 49 HDL Cholesterol 62 H Cholesterol/HDL Ratio 2.0 L TSH 0.30 L Urine Opiates Screen Urine Fentanyl Screen Ur Barbiturates Screen U Amphetamin/Meth Scrn U Benzodiazepines Scrn U Cocaine Metab Screen U Marijuana (THC) Screen Hepatitis A IgM Ab Hep Bs Antigen Hep B Core IgM Ab Hepatitis C Antibody Quality Measures Quality Measures VTE prophylaxis Assessment & Plan Assessment Current Active Medications: Generic Name Dose Route Start Last Admin Trade Name Freq PRN Reason Stop Dose Admin Acetaminophen 650 mg 06/07/25 09:28 Acetaminophen 325 Mg Tablet PO 07/07/25 09:27 Q6H PRN Fever >101.5 &/or pain Sodium Chloride 1,000 mls @ 75 mls/hr 06/07/25 09:30 06/07/25 21:59 Ns IV 07/07/25 09:29 75 mls/hr .[id number] VANESSA Administration Octreotide Acetate 1,000 mcg/ 102 mls @ 5.1 mls/hr 06/07/25 21:59 06/07/25 22:16 Sodium Chloride IV 06/12/25 21:59 50 mcg/hr .Q20H VANESSA 5.1 mls/hr Administration Protocol 50 MCG/HR Ceftriaxone Sodium/Dextrose 1 gm in 50 mls @ 100 mls/hr 06/08/25 05:16 06/08/25 05:37 Rocephin/D5w 1gm Iv Premix IV 06/15/25 05:15 100 mls/hr QDAY VANESSA Administration Ondansetron HCl 4 mg 06/07/25 09:28 Ondansetron Inj 2 Mg/Ml Inj 2 Ml IVP 07/07/25 09:27 Q6H PRN NAUSEA OR VOMITING Protocol Pantoprazole Sodium 40 mg 06/09/25 09:00 Pantoprazole Inj 40 Mg Vial IVP 07/09/25 08:59 BID VANESSA Sennosides 1 tab 06/07/25 09:28 Senna Tablet PO 07/07/25 09:27 QDAY PRN constipation Protocol Plan Gadiel Polanco is a 39M pmhx significant for alcohol dependence who presents to [facility] on 06/07 with acute hematemesis admitted for management of GIB, likely upper. #GIB, likely upper #Hematemasis #Posthemorrhagic anemia Endorses frequent episodes of hematemesis starting day prior to admission and in moderate amounts. On admission still vomiting, however, much less and light brown colored. Likely upper GI bleed 2/2 chronic alcohol use and cocaine use. Concern for esophageal varices given chronic alcohol use. 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 Reports no history of liver disease and rarely sees a PCP. CTAP showed diffuse fatty infiltration throughout the liver, normal appendix, urinary bladder mild wall thickening. AST/ALT mildly elevated at 47/50, baseline unknown. TBili elevated at 1.4 however abdominal US neg for gallbladder disease. Plan: - CTM LFTs and Tbili - Extensively educated about alcohol cessation - Recommend outpatient workup for further management - Monitor mental status and intiate CIWA protocol if warranted #Hypomagnesemia Admission Mg 1.5, repleted Mg 4g IV Plan: - Recheck and replete as necessary Hospital management: Lines: peripheral IV Diet: NPO Bowel: Senna/docusate GI prophylaxis: IV pantoprazole 40 mg BID DVT prophylaxis: SCDs, heparin held iso GIB Disposition: med [facility] for management of GIB CODE STATUS: Full code Plan of care discussed with attending Dr. Vasquez, and PGY-2 Dr. Crockett. Trudi Rojas DO PGY-1 Internal Medicine Attending Provider Attestation/Addendum I Kg Vasquez MD reviewed the note and agree with the resident's assessment & plan with modifications/additions/exceptions as below. I have personally reviewed labs, imaging, home meds/prior records, examined the patient, formulated and discussed management plan with the IM team. A 39-year-old male with heavy EtOH and polysubstance use presented to ED following an episode of hematemesis. Patient is hemodynamically stable with hemoglobin within normal limits, LFTs mildly elevated and labs significant for dehydration. Lipase, troponin within normal limits. CT scan did show fatty liver. Continue trending CBC every 12 hours. Patient had EGD revealing Brandy-Maynard tear in esophagus s/p cauterization. Continue octreotide infusion, Protonix IV twice daily and Mylanta every 4 hours as per GI recommendations.
--- NOTE | 2025-06-08 11:55 | PC.SS ---
SS met with patient regarding his d/c plan. Pt is alert/oriented. Pt was admitted for Hematemasis. Pt states his address is not correct on his facesheet. Patient's contact information is correct. [facility] has contact Mallorie from pt registration who has updated patient's correct address on his facesheet. Pt resides with , his mom, and kids. Pt ambulates independently without assistance or DME. Pt is ok with all ADLs. 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 Pt is requesting to apply for Medical. [facility]. Patient?s pharmacy of choice is [facility] on [address]. Pt named his , Larry Polanco medical decision maker if he is unable. Patient?s choice is to return home upon d/c. Pt states not diabetic and is not on dialysis. Pt states he is not established with PCP. SS offered verbal choices for clinics to follow up with PCP ex. [facility], [facility], [facility]. Patient's choice is [facility] in [place]. Pt states he will schedule an appointment. will provide transportation home. D/C plan: Return home Next of Kin: Larry Polanco, , phone# [phone] PCP: Pt will establish at [facility] Address: [address] [facility] [address]
[2025-06-08 13:23] LABS: OBG Card Expiration Date 12/26; OBG Card Lot # 20152; OBG Developer Expiration Date 6/26; OBG Developer Lot # 75027G; OBG Performed By chanl3; OBG QC OK? Yes
[2025-06-08 13:32] LABS: Free T4 (Free Thyroxine) 0.98 ng/dL (0.89-1.76)
[2025-06-08 13:58] LABS: Occult Blood, Gastric Positive (Negative)
[2025-06-08] MEDS: SUCRALFATE 1 GM TABLET PO ×2 (17:58→21:22)
[2025-06-08] MEDS: OCTREOTIDE ACET INJ 1,000 MCG in SODIUM CHLORIDE 0.9% 100 ML 5.1 MCG IV (17:58)
[2025-06-08] MEDS: MG HYD/AL HYD/SIME (Maalox Reg) SUSP 30 ML UDC 15 ML PO ×2 (17:58→20:52)
[2025-06-08] MEDS: SODIUM CHLORIDE 0.9% 1000 ML 1,000 ML 75 ML IV (17:59)
--- NOTE | 2025-06-08 21:24 | PC.NURSE ---
discontinued iv fluid and saline locked iv per md order.
[2025-06-09] VITALS: BP 95/68; PULSE 48; PULSE 56; RESP 16; TEMP 36.6; O2SAT 96
[2025-06-09 01:50] VITALS: BP 103/68; BP 104/71; PULSE 51; O2SAT 97
[2025-06-09 04:00] VITALS: BP 103/68; BP 108/68; PULSE 54; PULSE 55; RESP 16; TEMP 36.2; O2SAT 99
[2025-06-09 05:43] LABS: Basophils # (Auto) 0.0 Thou/mm3 (0.0-0.2); Basophils % (Auto) 1 % (0-2.5); Eosinophils # (Auto) 0.2 Thou/mm3 (0.0-0.5); Eosinophils % (Auto) 5 % (0-10); Hematocrit 32.6 % (41.0-53.0); Hemoglobin 10.5 g/dL (13.5-16.0); Immature Granulocytes Auto 0.01 Thou/mm3 (0.00-0.00); Lymphocytes # (Auto) 0.9 Thou/mm3 (1.0-4.8); Lymphocytes % (Auto) 18 % (10-50); Mean Corpuscular HGB Conc 32.2 g/dl (31.0-37.0); Mean Corpuscular Hemoglobin 31.8 pg (25.0-35.0); Mean Corpuscular Volume 99 fL (80-100); Monocytes # (Auto) 0.7 Thou/mm3 (0.0-0.8); Monocytes % (Auto) 14 % (0-12); Neutrophils # (Auto) 3.0 Thou/mm3 (1.8-7.7); Neutrophils % (Auto) 62 % (37-80); Nucleated Red Blood Cell # 0.00 Thou/mm3 (0.00-0.00); Nucleated Red Blood Cell % 0 /100 WBC (0); Platelet Count 151 Thou/mm3 (140-440); RDW Standard Deviation 42.7 fL (35.1-43.9); Red Blood Count 3.30 Miln/mm3 (4.50-5.90); White Blood Count 4.8 Thou/mm3 (3.8-10.6)
[2025-06-09] MEDS: MG HYD/AL HYD/SIME (Maalox Reg) SUSP 30 ML UDC 15 ML PO ×2 (06:01→11:16)
[2025-06-09] MEDS: SUCRALFATE 1 GM TABLET PO ×2 (06:01→14:28)
[2025-06-09 06:23] LABS: Alanine Aminotransferase 68 U/L (10-49); Albumin, Serum 3.6 gm/dL (3.5-5.0); Albumin/Globulin Ratio 1.5 (1.2-2.2); Alkaline Phosphatase 46 U/L (46-116); Anion Gap 9 (7-16); Aspartate Amino Transferase 89 U/L (0-34); BUN/Creatinine Ratio 9 Ratio (12-20); Bilirubin,Total 0.7 mg/dL (0.3-1.2); Blood Urea Nitrogen 7 mg/dL (9-23); Calcium 9.1 mg/dL (8.3-10.6); Calcium (Corrected) 9.4 mg/dL (8.5-10.1); Carbon Dioxide 29.0 mMol/L (20.0-31.0); Chloride 102 mMol/L (98-107); Creatinine (Component) 0.8 mg/dL (0.6-1.3); Estimated Creatinine Clearance 127.6 mL/min (>60); Globulin 2.4 gm/dL (2.3-3.5); Glucose 98 mg/dL (74-106); Magnesium 1.5 mg/dL (1.6-2.6); Osmolality,Calculated 277 (275-295); Potassium 4.3 mMol/L (3.4-5.1); Sodium 140 mMol/L (136-145); Total Protein 6.0 gm/dL (5.7-8.2); eGFR > 60 See Note
[2025-06-09 08:00] VITALS: BP 111/67; PULSE 58; RESP 18; TEMP 36.3; O2SAT 98
[2025-06-09] MEDS: cefTRIAXone/D5w 1gm IV premix 1 GM/50 ML BAG IV (09:02)
[2025-06-09] MEDS: Magnesium Sulfate 4 GM Ivpb 4 GM/50 ML BAG IV (09:56)
[2025-06-09 12:00] VITALS: BP 119/78; PULSE 60; RESP 18; TEMP 36.1; O2SAT 98
[2025-06-09] MEDS: OCTREOTIDE ACET INJ 1,000 MCG in SODIUM CHLORIDE 0.9% 100 ML 5.1 MCG IV (14:30)
--- NOTE | 2025-06-09 15:14 | ESDS_ITS ---
<Statement entered by Kg Vasquez MD - 06/14/25 18:09> I Kg Vasquez MD reviewed the note and agree with the resident's assessment & plan with modifications/additions/exceptions as below. I have personally reviewed labs, imaging, home meds/prior records, examined the patient, formulated and discussed management plan with the IM team. <Statement entered by Rio Crockett MD - 06/09/25 17:15> Patient was seen and examined by me personally. I have reviewed the below documentation by the team resident and agree with its findings. Discharge plan was discussed with the attending, Dr. Pedro MCDONOUGH 39-year-old male with past medical history of alcohol use admitted for GI bleed workup was started on octreotide drip, SBP prophylaxis and Protonix twice daily underwent EGD 06/08 found to have Brandy-Maynard tear, we continued octreotide drip for 24 hours per GI recommendations, will be discharged on Carafate, Maalox and Omeprazole per GI Recs. Stable for discharge, responded well to hospital treatment. Rio Crockett MD Internal Medicine, PGY-2 Planned Discharge Date 06/09/25 DS: Providers Provider Date of admission: 06/07/25 09:29 Primary care physician: Physician No Primary/Family Admitting Provider: Kg Vasquez MD Attending Provider on Admission: Kg Vasquez MD Consults: 06/07/25 05:31 Consult to Gastroenterology Stat Comment: GI bleeding Consulting Provider: Himanshu Flores Attending Provider on DC: Kg Vasquez MD Discharging Provider: Kg Vasquez MD DS: Diagnosis Problem List Completed Was Problem List Reviewed/Reconciled?: Yes Hospital Course Hospital Course Hospital course: Summary: Gadiel Polanco is a 39M pmhx significant for alcohol dependence who presents to [facility] on 06/07 with acute hematemesis admitted for upper GIB, Brandy Maynard tear. Patient reports nausea and hematemesis started day prior to admission, however worsened prompting him to come to the ED. Patient hemoglobin was stable on admission, GI consulted and underwent EGD which showed a large Brandy-Maynard tear at the gastroesophageal junction which was subsequently cauterized and hemostasis achieved. During hospital stay, patient was noted to have mild transaminitis likely due to steatohepatitis, CTAP findings below. Patient was monitored 24 hours postprocedure and on discharge, patient is hemodynamically stable, vitals and labs reviewed to be stable and patient is ready to go home. Imaging: CTAP showed diffuse fatty infiltration throughout the liver, normal appendix, urinary bladder mild wall thickening Discharge Recommendations: - Please take all medications as prescribed - Start omeprazole 40 mg daily for the next 3 months - Start Carafate 1 g 4 times daily - Start Mylanta - Recommend to stop alcohol intake - Please follow up with your PCP within one week of discharge - If your symptoms worsen, please seek immediate medical attention and return to your nearest emergency room. - If you do not have a PCP, you may follow up at the [facility] at [address] [place] [address] [address], 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 #Alcohol dependence #Hypomagnesemia Trudi Rojas, Internal Medicine, PGY-1 Status at Discharge Cognitive/behavioral status at discharge: Stable Functional status at discharge: independent ambulation Overall status at discharge: patient is back to baseline Time Spent with Patient Time attestation: Total time spent providing and/or coordinating discharge services: Time spent: Greater than 30 minutes Exam Vital Signs Temp Pulse Resp BP Pulse Ox O2 Del Method O2 Flow Rate 97.0 F 60 18 119/78 98 Room Air 3 06/09/25 12:00 06/09/25 12:00 06/09/25 12:06/09/25 12:06/09/25 12:06/09/25 12:06/08/25 16:28 Narrative Exam GENERAL: AOx3, no acute distress HEENT: NC/AT, mucous membranes moist, bilateral sclera anicteric CARDIOVASCULAR: regular rate and rhythm, S1/S2 present, no murmurs appreciated PULMONARY: clear to auscultation bilaterally, no rales/rhonchi/wheezes ABDOMINAL: soft, non-tender, non-distended, no rebound/guarding, bowel sounds present EXTREMITIES: no peripheral edema SKIN: warm and dry, intact, no rashes NEURO: CN II-XII grossly intact, no focal deficits, alert, following commands Discharge Plan Problem List Was Problem List Reviewed/Reconciled?: Yes Plan Patient Disposition: HOME (Self Care) Patient condition on transfer: Stable Prescriptions/Referrals Prescriptions/Med Rec: No Action No Known Home Medications Referrals: No Primary/Family,Physician [Primary Care Provider] - Patient/Caregiver Discharge Instructions Discharge Activity: activity as tolerated Print Language: Spanish Stand Alone Forms: Chel Award Info., Patient Portal Info Letter Discharge Order Discharge Orders: Discharge (Routine); Ordered 06/09/25 Ordered By: Prisca Vasquez Quality Discharge Quality Measures VTE prophylaxis
[2025-06-09 16:00] VITALS: BP 114/83; PULSE 99; RESP 17; TEMP 36.3; O2SAT 99
--- NOTE | 2025-06-09 20:44 | PD.IMPROG ---
Documentation for date of: 06/09/25 Subjective Subjective Interval history: Late entry for the note Case discussed with internal medicine team Large Brandy-Maynard tear requiring endoscopic intervention with epinephrine injection and bipolar gold heater probe Hemoglobin 10.5 and 32.6 Exam Vital Signs Temp Pulse Resp BP Pulse Ox O2 Del Method O2 Flow Rate 97.3 F 99 17 114/83 99 Room Air 3 06/09/25 16:00 06/09/25 16:00 06/09/25 16:00 06/09/25 16:00 06/09/25 16:00 06/09/25 16:00 06/08/25 16:28 Objective Labs 06/09/25 04:37 06/09/25 04:37 Labs: Laboratory Results - last 24 hr 06/09/25 04:37 WBC 4.8 RBC 3.30 L Hgb 10.5 L Hct 32.6 L MCV 99 MCH 31.8 MCHC 32.2 RDW Std Deviation 42.7 Plt Count 151 Neut % (Auto) 62 Lymph % (Auto) 18 [place] % (Auto) 14 H Eos % (Auto) 5 Baso % (Auto) 1 Neut # (Auto) 3.0 Lymph # (Auto) 0.9 L [place] # (Auto) 0.7 Eos # (Auto) 0.2 Baso # (Auto) 0.0 Immature Gran # (Auto) 0.01 H Absolute Nucleated RBC 0.00 Immature Gran % 0 Nucleated RBC % 0 Sodium 140 Potassium 4.3 Chloride 102 Carbon Dioxide 29.0 Anion Gap 9 BUN 7 L Creatinine 0.8 Estim Creat Clear Calc 127.6 eGFR > 60 BUN/Creatinine Ratio 9 L Glucose 98 Calculated Osmolality 277 Calcium 9.1 Corrected Calcium 9.4 Magnesium 1.5 L Total Bilirubin 0.7 D AST 89 H ALT 68 H Alkaline Phosphatase 46 Total Protein 6.0 Albumin 3.6 Globulin 2.4 Albumin/Globulin Ratio 1.5 Impressions Impression: Large Brandy-Maynard tears at least 3 of them at the GE junction along with ulceration requiring endoscopic intervention Okay to discharge patient on omeprazole to be followed by me as an outpatient Assessment & Plan A&P Narrative # Coffee-ground emesis # Posthemorrhagic anemia Plan I agree with the current management Consent obtained for fiberoptic esophagogastroduodenoscopy with possible biopsy possible therapeutic intervention under intravenous moderate sedation schedule for a.m. N.p.o. midnight tonight except p.o. meds # fatty liver with hepatomegaly discussed [place] cirrhosis Thank you very much for the opportunity to participate in the care of this patient Time Spent With Patient Time: Total time spent is greater than 50% in coordination of care (as documented) at patient's floor/unit and/or counseling patient:
== END 2025-06-09 17:30 | disposition home or self-care (01) | DRG 242 ==
LOC: SERX 05:41 → SERHOLD 09:54 → S3SX 14:22
PROVIDERS: Nurse Practitioner Family; Specialist; Admitting Provider Student in an Organized Health Care Education/Training Program; Emergency Provider Emergency Medicine; Visit Provider Student in an Organized Health Care Education/Training Program
PROC: 3E0G8GC Introduction of Other Therapeutic Substance into Upper GI, Via Natural or Artificial Opening Endoscopic (ICD-10-PCS; CPT 43239; principal; 2025-06-08 14:00)
DX: K22.6 Gastro-esophageal laceration-hemorrhage syndrome (principal); D62 Acute posthemorrhagic anemia; F14.90 Cocaine use, unspecified, uncomplicated; F10.20 Alcohol dependence, uncomplicated; F17.210 Nicotine dependence, cigarettes, uncomplicated; K70.9 Alcoholic liver disease, unspecified; E83.42 Hypomagnesemia; E86.0 Dehydration; K75.81 Nonalcoholic steatohepatitis (NASH)
CPT/HCPCS: 36415; 74176; 76705; 80053; 80061; 80074; 80307; 80320; 81001; 82150; 82248; 82271; 83036; 83690; 83735; 84100; 84439; 84443; 84484; 85025; 85610; 85730; 86850; 86900; 86901; 93005; 96361; 96374; 96375; 96376; 99284; A4649; J0168; J0696; J1200; J2175; J2250; J2354; J2405; J2470; J3010; J3475; J3490; J7030; J7050; A9270; G0480